=== PATIENT | male | born 1970 | race Caucasian/White ===

== ENCOUNTER 2018-02-04 13:57 | Day surgery (SDC) | payer OTHER ==
[~2018-02-04 13:57] MED LIST: EPHEDrine SULFATE 50 MG/5 ML SYG
[2018-02-04] MEDS ORDERED: CEFAZOLIN 1 GM INJ ×2 (15:03→19:22)
[2018-02-04] MEDS ORDERED: PROPOFOL 20 ML (15:03)
[2018-02-04] MEDS ORDERED: ROPIVACAINE 0.5 % 30 ML VIAL (15:04)
[2018-02-04] MEDS ORDERED: MIDAZOLAM 1 MG/ML 2 ML INJ (15:04)
[2018-02-04 15:20] LABS: ADD MAN DIFF? NO
[2018-02-04 15:22] LABS: WHITE BLOOD COUNT 7.7 10^3/ul (4.8-10.8)
[2018-02-04 15:22] LABS: BASOPHILS % 0.5 % (0.0-2.0); EOSINOPHILS # 0.2 10^3/ul (0.0-0.5); EOSINOPHILS % 1.9 % (0.0-7.0); HEMATOCRIT 42.1 % (42.0-52.0); HEMOGLOBIN 14.1 g/dl (14.0-18.0); LYMPHOCYTES # 1.9 10^3/ul (0.8-2.9); LYMPHOCYTES % 24.7 % (15.0-51.0); MEAN CORPUSCULAR HEMOGLOBIN 30.1 pg (29.0-33.0); MEAN CORPUSCULAR HGB CONC 33.5 g/dl (32.0-37.0); MEAN CORPUSCULAR VOLUME 89.8 fl (82.0-101.0); MEAN PLATELET VOLUME 9.2 fl (7.4-10.4); MONOCYTE # 0.5 10^3/ul (0.3-0.9); MONOCYTES % 6.6 % (0.0-11.0); NEUTROPHIL # 5.1 10^3/ul (1.6-7.5); NEUTROPHILS % 65.9 % (39.0-77.0); PLATELET COUNT 267 10^3/UL (140-415); RED BLOOD COUNT 4.69 10^6/ul (4.70-6.10); RED CELL DISTRIBUTION WIDTH 12.1 % (11.5-14.5)
[2018-02-04] MEDS ORDERED: ONDANSETRON 4 MG INJ IV ×2 (15:30→21:00)
[2018-02-04] MEDS ORDERED: HYDROmorphONE 1 MG/5 ML IV SYRINGE IV ×3 (15:30)
[2018-02-04] MEDS ORDERED: FENTAnyl 50 MCG/ML VIAL IV ×3 (15:30)
[2018-02-04] MEDS ORDERED: LABETALOL HCL 20MG INJ IV (15:30)
[2018-02-04] MEDS ORDERED: METOCLOPRAMIDE 10 MG INJ IV (15:30)
[2018-02-04] MEDS ORDERED: MEPERIDINE 25 MG INJ IV (15:30)
[2018-02-04] MEDS ORDERED: hydrALAzine 20 MG INJ IV (15:30)
[2018-02-04] MEDS ORDERED: OXYCODONE/ACETAMINOPHEN (5/325) TAB PO ×2 (15:30)
[2018-02-04] MEDS ORDERED: DIPHENHYDRAMINE 50 MG INJ IV (15:30)
[2018-02-04] MEDS ORDERED: EPHEDrine SULFATE 50 MG/5 ML SYG IV (15:30)
[2018-02-04 15:47] LABS: INR 1.04; PROTIME 13.7 Sec (11.9-14.9); PT RATIO 1.1
[2018-02-04 15:48] LABS: PARTIAL THROMBOPLASTIN TIME 27.4 Sec (25.0-35.0)
[2018-02-04 15:52] LABS: ANION GAP 10 (8-16); CARBON DIOXIDE 29 mmol/L (21-31); CHLORIDE 106 mmol/L (97-110); GLUCOSE 92 mg/dl (70-220)
[2018-02-04 15:55] LABS: BLOOD UREA NITROGEN 26 mg/dl (7-20); CALCIUM 9.3 mg/dl (8.4-10.2); CREATININE 0.91 mg/dl (0.61-1.24); POTASSIUM 4.1 mmol/L (3.5-5.1); SODIUM 141 mmol/L (135-144)
[2018-02-04] MEDS ORDERED: POLYMYXIN/BACITRACIN 1L IRRIG (16:49)
[2018-02-04] MEDS: POLYMYXIN/BACITRACIN 1L IRRIG IRR (16:56)
[2018-02-04] MEDS ORDERED: ACETAMINOPHEN 1000MG/100ML IV 100 ML (17:35)
[2018-02-04] MEDS ORDERED: DEXAMETHASONE 4 MG/ML 1 ML INJ (17:36)
[2018-02-04] MEDS ORDERED: KETOROLAC 30 MG INJ (17:36)
[2018-02-04] MEDS ORDERED: ONDANSETRON 4 MG INJ (17:36)
[2018-02-04] MEDS ORDERED: METOCLOPRAMIDE 10 MG INJ (17:36)
[2018-02-04] MEDS ORDERED: ROCURONIUM 50 MG INJ (18:10)
[2018-02-04] MEDS ORDERED: HETASTARCH 6% NACL 500 ML (18:13)
[2018-02-04] MEDS ORDERED: HYDROmorphONE 2 MG/ML SYG (20:07)
[2018-02-04] MEDS ORDERED: SUGAMMADEX SODIUM 200 MG/2 ML VIAL IV (20:10)
[2018-02-04] MEDS ORDERED: DIPHENHYDRAMINE 25 MG CAP PO (21:00)
[2018-02-04] MEDS ORDERED: HYDROmorphONE 2 MG/ML SYG IV (21:00)
[2018-02-04] MEDS ORDERED: CEFAZOLIN 1 GM INJ IV (21:00)
[2018-02-04] MEDS ORDERED: oxyCODONE (CR) 10 MG TAB [oxyCONTIN] PO (22:04)
[2018-02-04] MEDS: oxyCODONE (CR) 10 MG TAB [oxyCONTIN] PO (22:19)
[2018-02-04] MEDS ORDERED: GABAPENTIN 100 MG CAP NGT (23:00)
[2018-02-05] MEDS ORDERED: CEFAZOLIN 1 GM/50 ML (PMX) 50 ML IVPB
[2018-02-05] MEDS ORDERED: oxyCODONE 5 MG TAB PO (01:00)
[2018-02-05] MEDS ORDERED: RIVAROXABAN 10 MG TABLET PO (18:00)
== END 2018-02-04 22:47 | disposition home or self-care (01) ==
LOC: SDS 13:57
DX: S92.062A Displaced intraarticular fracture of left calcaneus, initial encounter for closed fracture (principal); W17.89XA Other fall from one level to another, initial encounter; Y93.31 Activity, mountain climbing, rock climbing and wall climbing
CPT/HCPCS: 28415; 73650-LT; 80048; 82306; 85025; 85610; 85730